=== PATIENT | female | born 1990 | race Caucasian/White ===

== ENCOUNTER 2017-03-14 03:00 | Inpatient (IN) | payer OTHER ==
[~2017-03-14] VITALS: Ht 162.6 cm; Wt 104.3 kg
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
--- NOTE | ~2017-03-14 | DS ---
Unit #: [id number] #: [id number] Patient: PEPPER ELAINE [id number] [facility] [address] [place] [address] [id number] MR#: [id number] NAME: PEPPER ELAINE ROOM: [facility] Age: 26 Sex: F Admission Date: 03/14/2017 : 1990 Discharge Date: 03/15/2017 Attending Physician: Uvaldo Flores M.D. Primary Care Physician: Ryanne Dunham M.D. DISCHARGE SUMMARY REASON FOR ADMISSION Psychosis. DIAGNOSTIC STUDIES LABORATORY RESULTS: AST 49. Urine toxicology positive for benzodiazepine. HOSPITAL COURSE The patient was admitted to inpatient unit on 03/14/2017 and discharged on 03/15/2017. The patient was somewhat guarded, participated in psychotherapy, psychoeducation, structured milieu. The patient was compliant with care and showed improvement. Subsequently, the patient was discharged with a plan to follow up in outpatient program. DISCHARGE MEDICATIONS None. The patient was given Invega Sustenna 234 mg injection, due in 30 days. DISCHARGE DIAGNOSES Psychiatric: Bipolar mood disorder, recurrent, severe, F31.9. Secondary diagnosis: Deferred. Medical diagnoses: History of asthma, hypothyroidism. Stressors: Psychosocial stressors. DISCHARGE INSTRUCTIONS The patient to follow up in outpatient clinic as per social welfare clerk. CONDITION ON DISCHARGE The patient was pleasant and cooperative. Denied any psychotic symptom or any suicidal ideation. PROGNOSIS Guarded. DIET AND ACTIVITY As tolerated. Dictated by... Uvaldo Flores M.D. Unit #: [id number] #: [id number] Patient: PEPPER ELAINE SZC/modl TD: 03/16/2017 02:14 JOB #: [id number] DISCHARGE SUMMARY Page 1 of 1 X Uvaldo Flores MD X DISCHARGE SUMMARY
--- NOTE | ~2017-03-14 | HP ---
Unit #: [id number] #: [id number] Patient: CHARLY ELAINE [id number] [place] [address] [id number] I MR#: [id number] NAME: CHARLY ELAINE ROOM: P110 Age: 26 Sex: F Admission Date: 03/14/2017 : 1990 Attending Physician: Uvaldo Flores M.D. Admitting Physician: Uvaldo Flores M.D. Primary Care Physician: Ryanne Dunham M.D. HISTORY AND PHYSICAL HISTORY OF PRESENT ILLNESS Charly is a 26-year-old female admitted because of her psychotic behavior. She has had other admissions to this facility for the same. PAST MEDICAL HISTORY 1. Morbid obesity. 2. Hypothyroidism. 3. Asthma. PAST SURGICAL HISTORY Oral. ALLERGIES Doxycycline, Lamictal, shellfish. SOCIAL HISTORY Smokes less than 1 pack per day. Drinks alcohol on occasion. Denies illicit drug use. FAMILY HISTORY Medically noncontributory. REVIEW OF SYSTEMS She does not answer any questions appropriately. There are no reports of nausea, vomiting or diarrhea. She has had no cough or increased temperature. CURRENT MEDICATIONS 1. Invega Sustenna 234 mg IM q. 30 days. 2. Trazodone 75 mg q.h.s. 3. Milk of Magnesia p.r.n. 4. Maalox p.r.n. 5. Tylenol p.r.n. 6. Lorazepam 1 mg t.i.d. PHYSICAL EXAMINATION GENERAL: Alert, well-nourished, in no apparent distress. VITAL SIGNS: Blood pressure 140/82, heart rate 100, respirations 16, temperature 98.6. WEIGHT: 230. HEIGHT: 5 feet 4 inches. SKIN: Warm and dry without rash or lesion. HEENT: Normocephalic. TMs not viewed. Oral and nasal passages clear. Unit #: [id number] #: [id number] Patient: CHARLY ELAINE Conjunctivae clear. PERRLA. EOMs intact. NECK: Supple without lymphadenopathy or thyromegaly. HEART: Regular rate and rhythm without murmur. LUNGS: Clear. ABDOMEN: Soft, nontender. : Not done. EXTREMITIES: No evidence of cyanosis, clubbing or edema. Moves all without focal deficit. NEUROLOGICAL: Grossly within normal limits. Cranial Nerves: II: Visual horn are intact. III, IV AND : Extraocular movements are intact. Pupils are equal, round and reactive to light. V: Facial sensation is grossly normal. VII: Facial movements and expression are normal. VIII: Auditory acuity grossly intact. IX, X: Uvula is midline. Phonation is normal. XI: Patient shrugs shoulders and turns head normally. XII: Tongue protrudes in the midline. Sensory and Motor Function: Sensory and motor sensation is grossly normal. Motor: moves all extremities well. Coordination: Gait is normal. Deep Tendon Reflexes: Intact. IMPRESSION Psychiatric admission. RECOMMENDATIONS PSYCHIATRIC: Per psychiatrist. MEDICAL: See no contraindication to participate in facility's activities. MEDICAL PROGNOSIS Good. MEDICAL CONDITION Stable. Dictated by... Nancy Alcaraz P.A.-C. for Sveta Naranjo/chelle TD: 03/14/2017 21:16 JOB #: [id number] HISTORY AND PHYSICAL Page 1 of 1 X Nancy Alcaraz HISTORY AND PHYSICAL
[2017-03-15 12:28] LABS: BASOPHIL% 0.1 % (0-2.5); HEMATOCRIT 40.5 % (35.0-45.0); HEMOGLOBIN 14.1 gm/dL (12.0-16.0); LYMPHOCYTE# 1.8 X10e3 (1.0-3.5); LYMPHOCYTE% 30.7 % (17.0-45.0); MEAN CELL VOLUME 83.3 FL (83-96); MEAN CORPUSCULAR HEMOGLOBIN 28.9 PG (28-34); MEAN CORPUSCULAR HGB CONC 34.7 g/dL (30-36); MEAN PLATELET VOLUME 9.2 FL (6.5-11.5); MONOCYTE# 0.5 X10e3 (0-1.0); MONOCYTE% 8.9 % (3.0-12.0); NEUTROPHIL# 3.5 X10e3 (1.5-7.1); NEUTROPHIL% 60.3 % (40-75); PLATELET COUNT 149 X10e3 (140-420); RED BLOOD COUNT 4.87 X10e (3.90-5.30); RED CELL DISTRIBUTION WIDTH 13.4 % (11.0-15.5); WHITE BLOOD COUNT 5.8 X10e3 (4.0-10.5)
[2017-03-15 12:32] LABS: DIFF IND NO
[2017-03-15 12:38] LABS: ALBUMIN SERUM 4.2 g/dL (3.5-5.0); BILIRUBIN,TOTAL 0.5 mg/dL (0.2-2.0); BUN/CREATININE RATIO 11.11; CREATININE SERUM 0.9 mg/dL (0.6-1.4); GLOM FILT RATE Estimated 88.9 mL/min (>60); POTASSIUM 3.6 mmol/L (3.5-5.1); PROTEIN TOTAL SERUM 6.9 g/dL (6.0-8.3)
== END 2017-03-15 11:11 | DRG 885 ==
LOC: P1S 06:12 → P2L 06:12 → P1S 13:53
PROVIDERS: Psychiatry & Neurology Psychiatry
DX: F31.9 Bipolar disorder, unspecified (principal); E03.9 Hypothyroidism, unspecified; J45.909 Unspecified asthma, uncomplicated
CPT/HCPCS: 80053; 82947; 84443; 84703; 85025; J0515; J1630; J2060

== ENCOUNTER 2017-03-15 16:12 | Inpatient (IN) | payer OTHER ==
[~2017-03-15] VITALS: Ht 160 cm; Wt 104.3 kg
--- NOTE | ~2017-03-15 | PN ---
Unit #: [id number] #: [id number] Patient: PEPPER ELAINE [id number] [facility] [address] [place] [address] [id number] I MR#: [id number] NAME: PEPPER ELAINE ROOM: [facility] Age: 26 Sex: F Admission Date: 03/15/2017 : 1990 Attending Physician: Uvaldo Flores M.D. Admitting Physician: Uvaldo Flores M.D. Primary Care Physician: Sveta Boyce PROGRESS NOTES DATE OF SERVICE 03/18/2017 DISCUSSION Ms. Parks is a 26-year-old female seen on 03/18/2017. The patient interviewed, chart reviewed. Obtained information from nursing staff. The patient was compliant, cooperative, redirectable. The patient on Invega Sustenna, next injection due 04/21. Currently taking Vistaril. The patient's vital signs 97.6, 61, 20, 116/65. The patient's thoughts are still disorganized, argumentative, cursing, disruptive, impulsive, instigating, rude. Complete Review of Systems: Unremarkable. MENTAL STATUS EXAMINATION General Appearance: The patient dressed casually. Attention span, concentration: Fair. Oriented in place and person. Mood and affect labile. Speech: Monotone. Thought process: Circumstantial, guarded, paranoid. Recent and remote memory: Poor. Insight and judgment: Poor. DIAGNOSIS Schizoaffective disorder, bipolar type. ASSESSMENT/PLAN Advised to continue with the current medication with a plan to add Thorazine 50 mg 3 times a day. Dictated by... Sveta Smith/dalton TD: 03/18/2017 18:08 JOB #: [id number] Unit #: [id number] #: [id number] Patient: PEPPER ELAINE PROGRESS NOTES Page 1 of 1 X Uvaldo Flores MD PROGRESS NOTE
--- NOTE | ~2017-03-15 | PN ---
Unit #: [id number] #: [id number] Patient: CHARLY ELAIEN [id number] [facility] [address] [place] [address] [id number] I MR#: [id number] NAME: CHARLY ELAINE ROOM: [facility] Age: 26 Sex: F Admission Date: 03/15/2017 : 1990 Attending Physician: Uvaldo Flores M.D. Admitting Physician: Uvaldo Flores M.D. Primary Care Physician: Sveta Boyce PROGRESS NOTES DATE 03/20/2017 DISCUSSION Charly is a 26-year-old female, seen on 03/20/2017. The patient interviewed, chart reviewed, and obtained information from the nursing staff. The patient continued to be withdrawn, isolative, guarded, bizarre behavior, but redirectable. The patient is scheduled to get injection Invega sustenna 156 mg tomorrow, plan to consider discharge tomorrow if the patient shows improvement. REVIEW OF SYSTEMS Complete review of systems unremarkable. MENTAL STATUS EXAMINATION General appearance: Patient dressed casually in hospital attire. Attention span and concentration, poor. Oriented in place and person. Mood and affect, labile. Speech, rapid. Thought process, circumstantial. The patient guarded, paranoid, but denied any thoughts of harming self or others. Recent and remote memory, poor. Insight and judgment, poor. DIAGNOSES 1. Bipolar mood disorder, NOS. 2. Rule out schizoaffective disorder. ASSESSMENT/PLAN Advised to continue with the current medication and therapeutic protocol, and if needed consider further adjustment of medication. Dictated by... Sveta Smith/ashwin TD: 03/22/2017 05:41 JOB #: [id number] Unit #: [id number] #: [id number] Patient: CHARLY ELAINE PROGRESS NOTES Page 1 of 1 X Uvaldo Flores MD PROGRESS NOTE
--- NOTE | ~2017-03-15 | HP ---
Unit #: [id number] #: [id number] Patient: CHARLY ELAINE [id number] [facility] [address] [place] [address] [id number] I MR#: [id number] NAME: CHARLY ELAINE ROOM: P121 Age: 26 Sex: F Admission Date: 03/15/2017 : 1990 Attending Physician: Uvaldo Flores M.D. Admitting Physician: Uvaldo Flores M.D. Primary Care Physician: Ryanne Dunham M.D. HISTORY AND PHYSICAL Charly is a 26 year old who is admitted to [address] [place] [address]. She was just discharged from this facility. Patient was seen and H and P dated 03/14/17 was reviewed. This is current. No changes. Please see H and P dated 03/14/17. Dictated by... Nancy Alcaraz P.A.-C. for Sveta Naranjo/chelle TD: 03/15/2017 18:38 JOB #: [id number] HISTORY AND PHYSICAL Page 1 of 1 X Nancy Alcaraz HISTORY AND PHYSICAL
--- NOTE | ~2017-03-15 | DS ---
Unit #: [id number] #: [id number] Patient: PEPPER ELAINE [id number] [facility] [address] [place] [address] [id number] I MR#: [id number] NAME: PEPPER ELAINE ROOM: [facility] Age: 26 Sex: F Admission Date: 03/15/2017 : 1990 Discharge Date: 03/21/2017 Attending Physician: Uvaldo Flores M.D. Primary Care Physician: Ryanne Dunham M.D. DISCHARGE SUMMARY REASON FOR ADMISSION Psychosis. DIAGNOSTIC STUDIES Laboratory data, unremarkable. HOSPITAL COURSE The patient was admitted to the inpatient unit on March 15 and discharged on March 21, 2017. The patient was responsive to treatment. Treated with behavior management, expressive therapy, medication management, psychoeducation, and psychotherapy. The patient was discharged with the plan to follow up in outpatient program. DISCHARGE DIAGNOSES PSYCHIATRIC: Stanford I Bipolar mood disorder, recurrent, severe, F31.9. Schizoaffective disorder, bipolar type, F25.9. Stanford II Deferred. Stanford III History of asthma, hypothyroidism, obesity. Stanford IV Psychosocial stressor. Stanford V INSTRUCTION TO PATIENT The patient is to followup in outpatient clinic as well as social research assistant. DISCHARGE MEDICATIONS Trazodone 200 mg at bedtime. The patient was given Invega Sustenna shot, 156 mg today. Next shot due on 04/21/17, Invega sustenna intramuscularly every thirty days, 234 mg. CONDITION AT DISCHARGE The patient is pleasant and cooperative, denied any psychotic symptoms or suicidal ideation. PROGNOSIS Guarded. DIET AND ACTIVITY As tolerated. Unit #: [id number] #: [id number] Patient: PEPPER ELAINE Dictated by... Sveta Smith/ashwin TD: 03/22/2017 12:46 JOB #: [id number] DISCHARGE SUMMARY Page 1 of 1 X Uvaldo Flores MD X DISCHARGE SUMMARY
--- NOTE | ~2017-03-15 | PN ---
Unit #: [id number] #: [id number] Patient: PEPPER ELAINE [id number] [facility] [address] [place] [address] [id number] I MR#: [id number] NAME: PEPPER ELAINE ROOM: [facility] Age: 26 Sex: F Admission Date: 03/15/2017 : 1990 Attending Physician: Uvaldo Flores M.D. Admitting Physician: Uvaldo Flores M.D. Primary Care Physician: Sveta Boyce PROGRESS NOTES DATE OF SERVICE 03/17/2017 DISCUSSION Ms. Mohan is a 26-year-old female seen on 03/17/2017. Patient's behavior continues to be bizarre agitation, paranoia requiring a p.r.n. Haldol. The patient continues to show bizarre behavior, mood lability, agitation. Complete review of systems unremarkable. MENTAL STATUS EXAMINATION General appearance, patient dressed casually in hospital attire. Attention span and concentration poor. Oriented to place and person. Mood and affect labile. Thought blocking noted. Recent and remote memory poor. Insight and judgement poor. Patient still having psychotic symptoms needing seclusion holding yesterday. DIAGNOSES Schizophrenia chronic paranoid type. ASSESSMENT/PLAN Advise to continue with current medication and therapeutic protocol. If needed consider further adjustment of medication. Dictated by... Sveta Smith/dale TD: 03/17/2017 23:18 JOB #: [id number] Unit #: [id number] #: [id number] Patient: PEPPER ELAINE PROGRESS NOTES Page 1 of 1 X Uvaldo Flores MD PROGRESS NOTE
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
--- NOTE | ~2017-03-15 | PN ---
Unit #: [id number] #: [id number] Patient: PEPPER ELAINE [id number] [facility] [address] [place] [address] [id number] I MR#: [id number] NAME: PEPPER ELAINE ROOM: [facility] Age: 26 Sex: F Admission Date: 03/15/2017 : 1990 Attending Physician: Uvaldo Flores M.D. Admitting Physician: Uvaldo Flores M.D. Primary Care Physician: Sveta Boyce PROGRESS NOTES DATE OF SERVICE 03/19/2017 DISCUSSION Ms. Parks is a 26-year-old female seen on 03/19/2017. Patient interviewed, chart reviewed. Patient's behavior continues to be erratic, bizarre. Mood labile. Vital signs 96.0, 116, 16, 137/72. Complete review of systems unremarkable. MENTAL STATUS EXAMINATION General appearance, patient dressed in hospital attire. Attention span and concentration poor. Oriented to place and person. Mood and affect labile. Speech monotone. Thought process concrete, guarded, paranoid, disorganized behavior. Recent and remote memory poor. Insight and judgement poor. DIAGNOSES Schizoaffective disorder bipolar type. ASSESSMENT/PLAN Advise to discontinue Depakote and Abilify. The patient reported that she did not do well on these medications. The patient scheduled to get next shot of Invega Sustenna on the and Invega Sustenna 156 mg intramuscularly after that next shot would be on 04/21/2017 Invega Sustenna 234 mg. Continue with the inpatient programming at this time. Dictated by... Sveta Smith/dale TD: 03/20/2017 05:02 JOB #: [id number] Unit #: [id number] #: [id number] Patient: PEPPER ELAINE PROGRESS NOTES Page 1 of 1 X Uvaldo Flores MD PROGRESS NOTE
== END 2017-03-21 11:10 | DRG 885 ==
LOC: P1S 16:12
DX: F20.0 Paranoid schizophrenia (principal); E66.01 Morbid (severe) obesity due to excess calories; E03.9 Hypothyroidism, unspecified; J45.909 Unspecified asthma, uncomplicated; F17.210 Nicotine dependence, cigarettes, uncomplicated
CPT/HCPCS: J0515; J1630; J2060

== ENCOUNTER 2017-04-16 09:00 | Inpatient (IN) | payer OTHER ==
[~2017-04-16] VITALS: Ht 160 cm; Wt 102.1 kg
--- NOTE | ~2017-04-16 | HP ---
Unit #: [id number] #: [id number] Patient: PEPPER ELAINE [id number] [place] [address] [id number] I MR#: [id number] NAME: PEPPER ELAINE ROOM: [facility] Age: 26 Sex: F Admission Date: 04/16/2017 : 1990 Attending Physician: Uvaldo Flores M.D. Admitting Physician: Uvaldo Flores M.D. Primary Care Physician: Ryanne Dunham M.D. HISTORY AND PHYSICAL HISTORY OF PRESENT ILLNESS Patient is a 26-year-old female admitted to [address] [place] [address] on 04/16/2017 for suicidal ideation and auditory hallucinations. PAST MEDICAL HISTORY 1. Psychosis with suicidal ideations. 2. Obesity. 3. Hypothyroidism. 4. Asthma. 5. Seizure disorder. PAST SURGICAL HISTORY Oral. SOCIAL HISTORY She is unemployed and homeless. Denies alcohol, tobacco, and drug use. FAMILY MEDICAL HISTORY Noncontributory. ALLERGIES Doxycycline, Paxil, shellfish, pork and red dye. CURRENT MEDICATIONS 1. Celexa 2. Thyroxine 3. Risperdal REVIEW OF SYSTEMS CONSTITUTIONAL: No fever or chills. HEENT: Denies any sore throat, ear pain or runny nose. CARDIOVASCULAR: Denies chest pain, irregular heart rhythm or palpitations. CHEST: Denies shortness of breath or cough. No hemoptysis. GASTROINTESTINAL: Denies nausea, vomiting, diarrhea or chronic constipation. ENDOCRINE: Denies history of increased thirst or urination. No recent significant weight loss or gain. GENITOURINARY: Denies dysuria, frequency, or hematuria. SKIN: Denies any rashes. HEMATOLOGIC: Denies history of increased bleeding or bruising. MUSCULOSKELETAL: Denies any hot, swollen joints. No generalized muscle pain. NEUROLOGIC: Denies problems with vision or speech. No frequent, severe Unit #: [id number] #: [id number] Patient: PEPPER ELAINE headaches. No numbness, tingling or weakness in any extremities. Denies loss of bladder or bowel control. PHYSICAL EXAM GENERAL: She is awake, alert and oriented in no acute distress. VITAL SIGNS: Temperature 98.9, heart rate 62, respiration 16, blood pressure 110/76. HEIGHT: 5'3". WEIGHT: 230 pounds. SKIN: Warm and dry without rash or lesion. HEENT: Normocephalic. TMs not viewed. Oral and nasal passages clear. Conjunctivae clear. PERRLA. EOMs intact. NECK: Supple without lymphadenopathy or thyromegaly. HEART: Regular rate and rhythm without murmur. LUNGS: Clear. ABDOMEN: Soft, nontender. : Not done. EXTREMITIES: No evidence of cyanosis, clubbing or edema. Moves all without focal deficit. NEUROLOGICAL: Grossly within normal limits. Cranial Nerves: II: Visual horn are intact. III, IV AND : Extraocular movements are intact. Pupils are equal, round and reactive to light. V: Facial sensation is grossly normal. VII: Facial movements and expression are normal. VIII: Auditory acuity grossly intact. IX, X: Uvula is midline. Phonation is normal. XI: Patient shrugs shoulders and turns head normally. XII: Tongue protrudes in the midline. Sensory and Motor Function: Sensory and motor sensation is grossly normal. Motor: moves all extremities well. IMPRESSION 1. Psychiatric admission. 2. Psychosis with suicidal ideations. 3. Obesity. 4. Hypothyroidism. 5. Asthma. 6. Seizure disorder. RECOMMENDATIONS Psychiatric per psychiatrist. MEDICAL No contraindication to participate in facility activities. MEDICAL PROGNOSIS Good. MEDICAL CONDITION Stable. Dictated by... Corby Carroll/dale Unit #: [id number] #: [id number] Patient: PEPPER ELAINE TD: 04/17/2017 01:29 JOB #: [id number] HISTORY AND PHYSICAL Page 1 of 1 X MARYAM MORAES APRN HISTORY AND PHYSICAL
--- NOTE | ~2017-04-16 | PA ---
Unit #: [id number] #: [id number] Patient: CHARLY MCDANIEL [id number] [place] [address] [id number] I MR#: [id number] NAME: CHARLY MCDANIEL ROOM: [facility] Age: 26 Sex: F Admission Date: 04/16/2017 : 1990 Date of Assessment: Attending Physician: Uvaldo Flores M.D. Admitting Physician: Uvaldo Flores M.D. Primary Care Physician: Ryanne Dunham M.D. PSYCHIATRIC ASSESSMENT INFORMANTS The patient reliability, fair informant and chart reliability, good. CHIEF COMPLAINT Depression and suicidal ideation. HISTORY OF PRESENT ILLNESS Charly Mcdaniel is a 26-year-old white female seen on with the above-mentioned complaint. The patient well known to us from her previous admission in 03/2017. The patient reported hearing voices, voices telling her to kill herself because she is a failure and waste of space. The patient reported that she is homeless and has been staying at [facility] since 03/14/2017. The patient reports that if she leaves hospital, she will overdose on her psych medication or cut herself. The patient was unable to contract for safety at this time. Needing inpatient admission at this time for psychiatric stabilization. The patient diagnosed with schizophrenia earlier. History of previous admission at [facility], [facility], and [facility] in the past. The patient is currently on Risperdal, Celexa, and levothyroxine. PAST PSYCHIATRIC HISTORY Remarkable for history of previous admission at [facility] on 03/16/2017, 03/14/2017, and 12/27/2015. FAMILY HISTORY AND SOCIAL HISTORY The patient has a poor support system. No history of abuse. No legal charges. Currently, homeless. MEDICAL HISTORY Remarkable for obesity, asthma, and hypothyroidism. ALLERGIES To doxycycline, red dye, shellfish, and Lamictal. CURRENT MEDICATIONS The patient is currently on Celexa 20 mg daily and Risperdal 2 mg b.i.d. The patient was on injection Sustenna shot, last received on 03/21/2017. The patient is also on Synthroid. SUBSTANCE ABUSE HISTORY The patient reported history of inhalant use, age of onset 12; alcohol, age of onset 13; and marijuana, age of onset 21. No history of any IV drug use. The patient denied any recent use of any drugs. Unit #: [id number] #: [id number] Patient: CHARLY MCDANIEL REVIEW OF SYSTEMS HEENT: Eyes, clear. Ears, nose, mouth, and throat; clear. CARDIOVASCULAR: Unremarkable. RESPIRATORY: Unremarkable. GI: Unremarkable. : Unremarkable. SKIN: Unremarkable. LYMPH NODE: Unremarkable. NEUROLOGIC: Unremarkable. ENDOCRINE: Unremarkable. HEMATOLOGIC: Unremarkable. ALLERGIC/IMMUNOLOGIC: Unremarkable. MUSCULOSKELETAL: Muscle strength and tone, no atrophy or abnormal movement. Gait normal. MENTAL STATUS EXAMINATION CONSTITUTIONAL: Measurement of vital signs; temperature 98.89, heart rate 62, respiratory rate 16, and blood pressure 110/76. Height 5 feet 3 inches and weight 225 pounds. GENERAL APPEARANCE: The patient dressed casually. The patient did not show any facial deformity. MUSCULOSKELETAL: Please see above. PSYCHIATRIC EXAMINATION Description of speech; regular rate, normal volume, normal articulation, coherent, and spontaneous. Description of thought process, goal directed. Description of association, intact. Description of abnormal psychotic thinking; the patient denied any hallucination or delusions, but mood lability. No history of any substance abuse, but hallucination and suicidal ideation. Description of the patient's judgment: Concerning everyday activity, poor. Social situation, poor. Concerning psychiatric condition, poor. Complete mental status examination; oriented in time, place, and person. Recent and remote memory, fair. Attention span and concentration, fair. Language, able to name object and repeat phrases. Fund of knowledge, aware of current event and passive vocabulary intact. Mood and affect, sad and dysphoric. Insight and judgment, fair to poor. ASSETS AND LIABILITIES Assets, the patient is articulate and able to take care of her ADL. Liability, history of suicidal ideation and depression. ADMITTING DIAGNOSES Psychiatric: Schizophrenia, chronic paranoid type, F20.0 and major depressive disorder, recurrent, severe, F33.2. Secondary diagnosis: Deferred. Medical diagnoses: Obesity, hypothyroidism, asthma, and seizure disorder. Stressors: Psychosocial stressors. PSYCHIATRIC PLAN AND TREATMENT GOAL AND DISCHARGE PLAN 1. Advised to admit the patient on the inpatient unit. Provide safe, supportive, and structured environment. 2. Ordered labs; CBC, CMP, UA, UDS, and test. Unit #: [id number] #: [id number] Patient: CHARLY MCDANIEL 3. Precaution for aggression, self-harm, and psychosis. 4. The patient to resume home medication. If needed, consider further adjustment of medication and consider injectable medication if needed. Treatment goal to attain euthymic mood, gain insight into her problem, and learn coping skills. DISCHARGE PLAN Plan to stabilize the patient and consider followup in outpatient program. ESTIMATED LENGTH OF STAY 5 to 7 days. Dictated by... Uvaldo Flores M.D. BILL/kit TD: 04/17/2017 17:28 JOB #: [id number] PSYCHIATRIC ASSESSMENT Page 1 of 1 X Uvaldo Flores MD X PSYCHIATRIC ASSESSMENT
--- NOTE | ~2017-04-16 | PN ---
Unit #: [id number] #: [id number] Patient: PEPPER ELAINE [id number] [facility] [address] [place] [address] [id number] I MR#: [id number] NAME: PEPPER ELAINE ROOM: 15 Age: 26 Sex: F Admission Date: 04/16/2017 : 1990 Attending Physician: Uvaldo Flores M.D. Admitting Physician: Uvaldo Flores M.D. Primary Care Physician: Sveta Boyce PROGRESS NOTES DATE OF SERVICE 04/20/2017 DISCUSSION Pepper is a 26-year-old female seen on 04/20/2017. The patient interviewed, chart reviewed. Obtained information from nursing staff. The patient compliant, cooperative. Reported still having passive SI, hallucination. No side effects from medication. Complete Review of Systems: Unremarkable. MENTAL STATUS EXAMINATION General Appearance: The patient dressed casually. Attention span, concentration: Fair. Oriented in time, place, and person. Mood and affect labile. Speech: Monotone. Thought process: [place]. The patient denied any thoughts of harming others but having passive SI. Guarded, hallucination. Recent and remote memory: Poor. Insight and judgment: Poor. DIAGNOSIS Schizophrenia, chronic, paranoid type. ASSESSMENT/PLAN Advised to continue with current medication and therapeutic protocol. If needed, consider further adjustment of medication. Dictated by... Uvaldo Flores M.D. SZC/bzg TD: 04/21/2017 09:17 JOB #: [id number] Unit #: [id number] #: [id number] Patient: PEPPER ELAINE PROGRESS NOTES Page 1 of 1 X Uvaldo Flores MD X PROGRESS NOTE
--- NOTE | ~2017-04-16 | PN ---
Unit #: [id number] #: [id number] Patient: CHARLY ELAINE [id number] [facility] [address] [place] [address] [id number] I MR#: [id number] NAME: CHARLY ELAINE ROOM: [facility] Age: 26 Sex: F Admission Date: 04/16/2017 : 1990 Attending Physician: Uvaldo Flores M.D. Admitting Physician: Uvaldo Flores M.D. Primary Care Physician: Sveta Boyce PROGRESS NOTES DATE OF SERVICE 04/22/2017 DISCUSSION Charly is a 26-year-old female seen on 04/22/2017. The patient interviewed, chart reviewed. Obtained information from nursing staff. The patient was compliant, cooperative. Mood sad, dysphoric, flat affect, guarded. The patient reported still having passive SI, hallucination, but making progress. Vital Signs: 97.4, 67, 16, 106/66. Complete Review of Systems: Unremarkable. MENTAL STATUS EXAMINATION General Appearance: The patient dressed casually. Moderately obese. Attention span, concentration: Fair. Oriented in time, place, and person. Mood and affect: Sad, depressed. Speech: Monotone. Thought process: [place]. The patient having passive SI. Guarded, paranoid. Decrease in hallucination. Recent and remote memory: Poor. Insight and judgment: Poor. DIAGNOSIS Schizophrenia, chronic paranoid type. ASSESSMENT/PLAN Advised to continue with current medication and therapeutic protocol. If needed, consider further adjustment of medication. Dictated by... Sveta Smith/dalton TD: 04/25/2017 08:02 JOB #: [id number] Unit #: [id number] #: [id number] Patient: CHARLY ELAINE PROGRESS NOTES Page 1 of 1 X Uvaldo Flores MD X PROGRESS NOTE
--- NOTE | ~2017-04-16 | PN ---
Unit #: [id number] #: [id number] Patient: PEPPER ELAINE [id number] [facility] [address] [place] [address] [id number] I MR#: [id number] NAME: PEPPER ELAINE ROOM: [facility] Age: 26 Sex: F Admission Date: 04/16/2017 : 1990 Attending Physician: Uvaldo Flores M.D. Admitting Physician: Uvaldo Flores M.D. Primary Care Physician: Sveta Boyce PROGRESS NOTES DATE OF SERVICE: 04/18/2017 DISCUSSION Ms. Parks is a 26-year-old female, seen on 04/18/2017. The patient interviewed, chart reviewed, and obtained information from nursing staff. The patient continues to report feeling sad, depressed, suicidal ideation, hallucination, anxiety, and trouble sleeping. REVIEW OF SYSTEMS Complete review of systems unremarkable. MENTAL STATUS EXAMINATION General appearance, the patient dressed casually in hospital attire. Attention span and concentration, fair. Oriented in time, place, and person. Mood and affect, sad and dysphoric. Speech, monotone. Thought process, concrete. The patient denied any thoughts of harming others, but having suicidal ideation and hallucination. Recent and remote memory, poor. Insight and judgment, poor. DIAGNOSES Schizophrenia, chronic, paranoid type; major depressive disorder, recurrent, severe. ASSESSMENT AND PLAN Advised to continue with current medication with a plan to increase Celexa to 40 mg daily, Vistaril 25 mg t.i.d. Advised Minipress 2 mg at bedtime. The patient has a trazodone p.r.n. If needed, consider further adjustment of medication. Dictated by... Sveta Smith/tetel TD: 04/18/2017 18:10 JOB #: [id number] Unit #: [id number] #: [id number] Patient: PEPPER ELAINE PROGRESS NOTES Page 1 of 1 X Uvaldo Flores MD PROGRESS NOTE
--- NOTE | ~2017-04-16 | PN ---
Unit #: [id number] #: [id number] Patient: PEPPER ELAINE [id number] [facility] [address] [place] [address] [id number] I MR#: [id number] NAME: PEPPER ELAINE ROOM: [facility] Age: 26 Sex: F Admission Date: 04/16/2017 : 1990 Attending Physician: Uvaldo Flores M.D. Admitting Physician: Uvaldo Flores M.D. Primary Care Physician: Sveta Boyce PROGRESS NOTES DATE 04/21/2017 DISCUSSION Ms. Parks is a 26-year-old female. The patient interviewed, chart reviewed, and obtained information from the nursing staff. The patient continues to be isolative, guarded, flat affect, reporting hearing voices, sad, depressed, having suicidal thoughts. REVIEW OF SYSTEMS Complete review of systems unremarkable. MENTAL STATUS EXAMINATION General appearance: Patient dressed casually. Attention span and concentration, fair. Oriented in time, place, and person. Mood and affect, sad, depressed, withdrawn, isolative. Thought process, goal-directed. Thought content, the patient having suicidal ideation, hallucinations. Recent and remote memory, poor. Insight and judgment, poor. DIAGNOSIS Schizophrenia, chronic paranoid type. ASSESSMENT/PLAN Advised to continue with the current medication and therapeutic protocol, if needed consider further adjustment of medication. Dictated by... Sveta Smith/ashwin TD: 04/24/2017 06:04 JOB #: [id number] Unit #: [id number] #: [id number] Patient: PEPPER ELAINE PROGRESS NOTES Page 1 of 1 X Uvaldo Flores MD PROGRESS NOTE
--- NOTE | ~2017-04-16 | PN ---
Unit #: [id number] #: [id number] Patient: CHARLY ELAINE [id number] [facility] [address] [place] [address] [id number] I MR#: [id number] NAME: CHARLY ELAINE ROOM: [facility] Age: 26 Sex: F Admission Date: 04/16/2017 : 1990 Attending Physician: Uvaldo Flores M.D. Admitting Physician: Uvaldo Flores M.D. Primary Care Physician: Sveta Boyce PROGRESS NOTES DATE OF SERVICE 04/19/2017 DISCUSSION Charly is a 26-year-old female seen on 04/19/2017. The patient interviewed, chart reviewed. Obtained information from nursing staff. The patient was compliant, cooperative. Mood sad, dysphoric, flat, withdrawn, isolative, guarded. Still reporting suicidal ideation, hallucination, but medication helping. Complete Review of Systems: Unremarkable. MENTAL STATUS EXAMINATION General Appearance: The patient dressed casually. Attention span, concentration: Fair. Oriented in time, place, and person. Mood and affect: Sad, depressed. Speech: Monotone. Thought process: [place]. The patient denied any thoughts of harming self or others but still having passive SI, hallucination. Recent and remote memory: Poor. Insight and judgment: Poor. DIAGNOSIS Schizophrenia, chronic, paranoid type. ASSESSMENT/PLAN Advised to continue with current medication and therapeutic protocol. If needed, consider further adjustment of medication. Dictated by... Sveta Smith/dalton TD: 04/20/2017 10:47 JOB #: [id number] Unit #: [id number] #: [id number] Patient: CHARLY ELAINE PROGRESS NOTES Page 1 of 1 X Uvaldo Flores MD PROGRESS NOTE
--- NOTE | ~2017-04-16 | PN ---
Unit #: [id number] #: [id number] Patient: CHARLY ELAINE [id number] [facility] [address] [place] [address] [id number] MR#: [id number] NAME: CHARLY ELAINE ROOM: [facility] Age: 26 Sex: F Admission Date: 04/16/2017 : 1990 Attending Physician: Uvaldo Flores M.D. Admitting Physician: Uvaldo Flores M.D. Primary Care Physician: Sveta Boyce PROGRESS NOTES DATE 04/23/2017 DISCUSSION Charly is a 26-year-old female, seen on 04/23/2017. The patient interviewed, chart reviewed, and obtained information from the nursing staff. The patient's vital signs, 98.1, 65, 14, 84/61. The patient reports medication is helping her. REVIEW OF SYSTEMS Complete review of systems unremarkable. MENTAL STATUS EXAMINATION General appearance: Patient dressed casually. Attention span and concentration, fair. Oriented in time, place, and person. Mood and affect, labile. Speech, monotone. Thought process, concrete. The patient denied any thoughts of harming self or others. Recent and remote memory, poor. Insight and judgment, poor. DIAGNOSIS Schizophrenia, chronic, paranoid type. ASSESSMENT/PLAN Advised to continue with the current medication and therapeutic protocol, and if needed consider further adjustment of medication. Dictated by... Sveta Smith/ashwin TD: 04/26/2017 09:08 JOB #: [id number] Unit #: [id number] #: [id number] Patient: CHARLY ELAINE PROGRESS NOTES Page 1 of 1 X Uvaldo Flores MD PROGRESS NOTE
--- NOTE | ~2017-04-16 | CO ---
Unit #: [id number] #: [id number] Patient: CHARLY ELAINE [id number] [facility] [address] [place] [address] [id number] I MR#: [id number] NAME: CHARLY ELAINE ROOM: 15 Age: 26 Sex: F Admission Date: 04/16/2017 : 1990 Attending Physician: Uvaldo Flores M.D. Primary Care Physician: Ryanne Dunham M.D. Consultation Date: 04/18/2017 CONSULTATION REPORT SUBJECTIVE Charly is a 26-year-old who has complained to nursing staff of a headache. She tells us this is not a particularly "bad" headache, but she is requesting Topamax. I have spoke with nursing staff. Yanci has no history of migraine headaches. She does have Tylenol for her headaches and should use this p.r.n. PLAN There is no plan to start Topamax for her headache. Dictated by... Nancy Alcaraz P.A.-C. for Sveta Naranjo/kit TD: 04/20/2017 16:16 JOB #: [id number] CONSULTATION REPORT Page 1 of 1 X Nancy Alcaraz CONSULTATION REPORT
--- NOTE | ~2017-04-16 | PN ---
Unit #: [id number] #: [id number] Patient: CHARLY MCDANIEL [id number] [facility] [address] [place] [address] [id number] MR#: [id number] NAME: CHARLY MCDANIEL ROOM: [facility] Age: 26 Sex: F Admission Date: 04/16/2017 : 1990 Attending Physician: Uvaldo Flores M.D. Admitting Physician: Uvaldo Flores M.D. Primary Care Physician: Sveta Boyce PROGRESS NOTES DATE 04/17/2017 DISCUSSION Charly Mcdaniel is a 26-year-old female seen on 04/17/2017. Patient interviewed, chart reviewed. Obtained information from nursing staff. Patient was compliant and cooperative. Mood was labile. Patient adjusting fairly well to unit rules. Sad, dysphoric, withdrawn, reported still having suicidal ideation, hallucinations, behavior described as impulsive, poor boundaries, noncompliant. Complete review of systems unremarkable. MENTAL STATUS EXAMINATION General appearance, patient moderately obese, dressed casually. Attention span and concentration fair. Oriented to place and person. Mood and affect labile. Speech monotone. Thought process concrete. Patient reported having suicidal ideation, hallucination. Recent and remote memory poor. Insight and judgement poor. DIAGNOSES 1. Schizophrenia chronic paranoid type. 2. Mood disorder. 3. Major depressive disorder recurrent severe. ASSESSMENT/PLAN Advise to continue with current medication and therapeutic protocol. If needed consider further adjustment of medication. Dictated by... Sveta Smith/dale TD: 04/18/2017 23:15 JOB #: [id number] Unit #: [id number] #: [id number] Patient: CHARLY MCDANIEL PROGRESS NOTES Page 1 of 1 X Uvaldo Flores MD PROGRESS NOTE
--- NOTE | ~2017-04-16 | DS ---
Unit #: [id number] #: [id number] Patient: PEPPER ELAINE [id number] [facility] [address] [place] [address] [id number] MR#: [id number] NAME: PEPPER ELAINE ROOM: [facility] Age: 26 Sex: F Admission Date: 04/16/2017 : 1990 Discharge Date: 04/24/2017 Attending Physician: Uvaldo Flores M.D. Primary Care Physician: Ryanne Dunham M.D. DISCHARGE SUMMARY REASON FOR ADMISSION Depression, hearing voices, and suicidal ideation. DIAGNOSTIC STUDIES LABORATORY RESULTS: Unremarkable. HOSPITAL COURSE The patient was admitted to inpatient unit on 04/16/2017 and discharged on 04/24/2017. The patient was treated with group therapy, individual therapy, and medication management. The patient was responsive to treatment and showed improvement. Subsequently, the patient was discharged with a plan to follow up in outpatient program. DISCHARGE MEDICATIONS Risperdal 2 mg b.i.d. for psychosis, Celexa 20 mg daily for depression, Minipress 2 mg at bedtime for nightmare, and Vistaril 25 mg t.i.d. for anxiety. DISCHARGE DIAGNOSES Psychiatric: Schizophrenia, chronic paranoid type, F20.0 and major depressive disorder, recurrent, severe, F33.2. Secondary diagnosis: Deferred. Medical diagnoses: Obesity, hypothyroidism, asthma, and seizure disorder. Stressors: Psychosocial stressors. DISCHARGE INSTRUCTIONS The patient to follow up in outpatient clinic as per social worker masters. CONDITION ON DISCHARGE The patient was pleasant and cooperative. Denied any psychotic symptom or any suicidal ideation. PROGNOSIS Guarded. DIET AND ACTIVITY As tolerated. Dictated by... Unit #: [id number] #: [id number] Patient: PEPPER ELAINE Sveta Smith/kit TD: 04/24/2017 17:36 JOB #: [id number] DISCHARGE SUMMARY Page 1 of 1 X Uvaldo Flores MD X DISCHARGE SUMMARY
[2017-04-16 15:15] LABS: URINE APPEARANCE CLOUDY; URINE BILIRUBIN NEG (NEG); URINE BLOOD NEG (NEG); URINE COLOR YELLOW; URINE GLUCOSE NEG (NEG); URINE KETONE NEG (NEG); URINE LEUKOCYTE ESTERASE NEG (NEG); URINE NITRATE NEG (NEG); URINE PROTEIN NEG (NEG); URINE SPECIFIC GRAVITY 1.026 (1.003-1.035); URINE UROBILINOGEN 0.2 MG/DL (NEG)
[2017-04-16 15:38] LABS: AMPHETAMINE NEG (NEG); BARBITURATES NEG (NEG); BENZODIAZEPINES NEG (NEG); COCAINE NEG (NEG); MARIJUANA NEG (NEG); OPIATES NEG (NEG); TRICYCLIC ANTIDEPRESSANTS NEG (NEG); U METHADONE NEG (NEG)
[2017-04-17 10:09] LABS: BASOPHIL% 0.1 % (0-2.5); HEMATOCRIT 45.1 % (35.0-45.0); HEMOGLOBIN 15.3 gm/dL (12.0-16.0); LYMPHOCYTE# 1.9 X10e3 (1.0-3.5); LYMPHOCYTE% 30.7 % (17.0-45.0); MEAN CELL VOLUME 84.9 FL (83-96); MEAN CORPUSCULAR HEMOGLOBIN 28.8 PG (28-34); MEAN CORPUSCULAR HGB CONC 33.9 g/dL (30-36); MEAN PLATELET VOLUME 9.4 FL (6.5-11.5); MONOCYTE# 0.3 X10e3 (0-1.0); MONOCYTE% 5.5 % (3.0-12.0); NEUTROPHIL# 3.9 X10e3 (1.5-7.1); NEUTROPHIL% 63.7 % (40-75); PLATELET COUNT 156 X10e3 (140-420); RED BLOOD COUNT 5.31 X10e (3.90-5.30); RED CELL DISTRIBUTION WIDTH 14.3 % (11.0-15.5); WHITE BLOOD COUNT 6.2 X10e3 (4.0-10.5)
[2017-04-17 10:12] LABS: DIFF IND NO
[2017-04-17 10:45] LABS: ALBUMIN SERUM 3.9 g/dL (3.5-5.0); BILIRUBIN,TOTAL 0.9 mg/dL (0.2-2.0); BUN/CREATININE RATIO 17.5; CALCIUM SERUM 9.1 mg/dL (8.4-10.2); CREATININE SERUM 0.8 mg/dL (0.6-1.4); GLOM FILT RATE Estimated 102.6 mL/min (>60); POTASSIUM 4.2 mmol/L (3.5-5.1)
[2017-04-17 11:15] LABS: FREE THYROXIN (T4) 0.28 ng/dL (0.58-1.64)
[2017-04-17 11:16] LABS: THYROID STIMULATING HORMONE >100.00 uIU/ml (0.34-5.60)
== END 2017-04-24 15:14 | disposition home or self-care (01) | DRG 885 ==
LOC: P1S 10:37
PROVIDERS: Psychiatry & Neurology Psychiatry
DX: F20.0 Paranoid schizophrenia (principal); F33.2 Major depressive disorder, recurrent severe without psychotic features; E66.9 Obesity, unspecified; E03.9 Hypothyroidism, unspecified; Z88.8 Allergy status to other drugs, medicaments and biological substances; Z88.1 Allergy status to other antibiotic agents; Z91.013 Allergy to seafood
CPT/HCPCS: 80053; 80307; 81003; 84439; 84443; 84703; 85025